=== PATIENT | male | born 1965 | race Asian ===

== ENCOUNTER 2016-06-07 09:29 | Emergency (ER) | payer BC ==
[~2016-06-07] VITALS: Ht 162.6 cm; Wt 79.5 kg
[~2016-06-07 09:29] MED LIST: ATOR40TA68 PO; METF-382 PO
[2016-06-07 09:30] VITALS: Ht 162.6 cm; Wt 79.5 kg
[2016-06-07] MEDS ORDERED: FAMOTIDINE 20 MG INJ IV STA (11:24)
[2016-06-07] MEDS ORDERED: SOD CHLORIDE 0.9% 500 ML IV STA (11:24)
[2016-06-07] MEDS ORDERED: ONDANSETRON 4 MG INJ IV STA (11:24)
[2016-06-07] MEDS ORDERED: morphine 4 MG/ML VIAL IV STA (11:24)
[2016-06-07 11:53] LABS: ADD SCAN DIFF NO
[2016-06-07 12:00] LABS: ALBUMIN 4.5 g/dl (3.3-4.9); POTASSIUM 4.2 mmol/L (3.5-5.1)
[2016-06-07 12:02] LABS: BILIRUBIN,INDIRECT 0.4 mg/dl (0-1.1); BILIRUBIN,TOTAL 0.4 mg/dl (0.2-1.3); CREATININE 0.82 mg/dl (0.61-1.24)
[2016-06-07] MEDS ORDERED: LANT3I SC (12:02)
[2016-06-07 12:03] LABS: ALBUMIN/GLOBULIN RATIO 1.45; CALCIUM 9.7 mg/dl (8.4-10.2); TOTAL PROTEIN 7.6 g/dl (6.1-8.1)
[2016-06-07 12:07] LABS: BASOPHILS % 0.6 % (0.0-2.0); EOSINOPHILS # 0.3 10^3/ul (0.0-0.5); EOSINOPHILS % 4.3 % (0.0-7.0); HEMATOCRIT 51.1 % (42.0-52.0); HEMOGLOBIN 16.7 g/dl (14.0-18.0); LYMPHOCYTES # 2.4 10^3/ul (0.8-2.9); LYMPHOCYTES % 36.3 % (15.0-51.0); MEAN CORPUSCULAR HEMOGLOBIN 27.3 pg (29.0-33.0); MEAN CORPUSCULAR HGB CONC 32.7 g/dl (32.0-37.0); MEAN CORPUSCULAR VOLUME 83.6 fl (82.0-101.0); MEAN PLATELET VOLUME 10.2 fl (7.4-10.4); MONOCYTE # 0.4 10^3/ul (0.3-0.9); MONOCYTES % 6.3 % (0.0-11.0); NEUTROPHIL # 3.4 10^3/ul (1.6-7.5); NEUTROPHILS % 52.3 % (39.0-77.0); PLATELET COUNT 218 10^3/UL (140-415); RED BLOOD COUNT 6.11 10^6/ul (4.70-6.10); RED CELL DISTRIBUTION WIDTH 13.5 % (11.5-14.5); WHITE BLOOD COUNT 6.5 10^3/ul (4.8-10.8)
[2016-06-07] MEDS ORDERED: SOD CHLORIDE 0.9% 100 ML ONE (12:46)
[2016-06-07] MEDS ORDERED: IOHEXOL 300MG/ML 150 ML BTL ONE (12:46)
--- NOTE | 2016-06-07 13:11 | RADRPT ---
PROCEDURE: CT scan of the abdomen and pelvis with and without IV contrast. CLINICAL INDICATION: Abdominal pain. TECHNIQUE: Thin section axial, coronal and sagittal images were performed through the abdomen and pelvis without contrast and then following the injection of 100 cc of Isovue 370. Low-dose protocol imaging was utilized. One or more of the following dose reduction techniques were used: - Automated exposure control. - Adjustment of the mA and/or kV according to patient size. Use of iterative reconstruction technique. Radiation Dose: CTDI: A point a and DLP: 500 COMPARISON: Chest x-ray 06/12/2014. FINDINGS: Lungs and pleural space: There is peripheral atelectasis in the bases of the lungs attributed to sup ine positioning and a less than optimal inspiration. No pulmonary infiltrate or pleural effusion is identified. Heart: Normal. No pericardial effusion is present. The liver, common bile duct and gallbladder: The liver is enlarged measuring 17.8 cm AP. The hepati c and portal veins are patent. The gallbladder and gallbladder wall are normal. There is no eviden ce of cholelithiasis. Pancreas: Normal. The extrahepatic common bile duct is normal. Gastrointestinal: Gastric wall thickening is attributed to incomplete distension. There is no evide nce of a hiatal hernia. The small bowel loops are normal. There is fecal material in the ascending and descending colon the vermiform appendix is normal. There is a tiny umbilical hernia containing only fat. There are small diverticula in the sigmoid colon but no evidence of diverticulitis. Kidneys and bladder : There are bilateral small benign renal cysts which do not require additional f ollow-up. No solid renal mass is identified. There is no evidence of hydronephrosis. The urinary b ladder is normal. No bladder wall thickening or bladder stone is present. Adrenal glands: Normal. Spleen: Normal. Lymph nodes: Normal. Reproductive system: The seminal vesicles and prostate gland are normal. Bony elements: There are degenerative osteophytes in the lower thoracic and lumbosacral spine. Ther e are degenerative changes in both hips. No acute bony fracture or bone metastasis is identified. Vasculature: Normal. IMPRESSION: 1. Multiple benign small renal cysts are identified bilaterally with no evidence of a solid mass or hydronephrosis. 2. Mild hepatomegaly with the liver measuring 17.8 cm AP. 3. Diverticulosis of the sigmoid colon. No evidence of diverticulitis. Normal vermiform appendix. 4. No acute abdominal or pelvic processes identified. 5. Spondylosis of the thoracic and lumbosacral spine. 6. Small midline umbilical hernia containing fat. RPTAT:AAJJ Physician Keyla Date Time Electronically viewed and signed by Matt Morales Physician on 06/07/2016 13:10 /
[2016-06-07] MEDS ORDERED: OMEP40CA6 PO (13:35)
--- NOTE | 2016-06-07 13:38 | ERD ---
ER Documentation Chief Complaint Date/Time DATE: 06/07/16 TIME: 13:36 Chief Complaint ap x 1 week, intermittent HPI This is a 50-year-old male complaining of left upper quadrant pain for the past week. He says when he eats food he starts having lots of belching and gas. He says that he has some mild discomfort that has been relieved with Pepcid over the past week. He says he has a history of peptic ulcer disease and this feels exactly like his prior ulcer. He has no chest pain or shortness of breath pain in the elbows jaws no back pain. No diaphoresis no exertional pain. Says it tends to get worse relatively quickly after eating. He says the last 30 minutes to an hour and will go away. He states he has 1 or 2 loose bowels as well. No vomiting no nausea. ROS All systems reviewed and are negative except as per history of present illness. Medications Home Meds Active Scripts Omeprazole* (Omeprazole*) 40 Mg Capsule.dr, 40 MG PO DAILY, #14 CAP Prov:DUY HERNANDEZ DO 06/07/16 Reported Medications Insulin Glargine* (Lantus*) 100 Unit/Ml Soln, 15 UNIT SC QHS, #1 VIAL 06/07/16 Metformin Hcl* (Metformin Hcl*) 500 Mg Tablet, 500 MG PO BID, TAB 02/17/14 Discontinued Reported Medications Atorvastatin* (Atorvastatin*) 40 Mg Tablet, 40 MG PO HS, TAB 08/14/13 Allergies Allergies: Coded Allergies: aspirin (Verified Allergy, Unknown, 08/14/13) PMhx/Soc History of Surgery: No Anesthesia Reaction: No Hx Neurological Disorder: No Hx Respiratory Disorders: No Hx Cardiac Disorders: No Hx Psychiatric Problems: No Hx Miscellaneous Medical Probl: Yes (DM) Hx Alcohol Use: No Hx Substance Use: No Hx Tobacco Use: No Smoking Status: Never smoker FmHx Family History: No coronary disease Physical Exam Vitals Vital Signs Date Time Temp Pulse Resp B/P Pulse Ox O2 Delivery O2 Flow Rate FiO2 06/07/16 09:30 98.1 80 20 137/91 99 Physical Exam Const: Well-developed, well-nourished Head: Atraumatic, normocephalic Eyes: Normal Conjunctiva, PERRLA, EOMI, normal sclera, no nystagmus ENT: Normal External Ears, Nose and Mouth, moist mucus membranes. Neck: Full range of motion. No meningismus, no lymphadenopathy. Resp: Clear to auscultation bilaterally, no wheezing, rhonchi, rales Cardio: Regular rate and rhythm, no murmurs, S1 S2 present Abd: Soft, very mild left upper quadrant and left mid abdominal tenderness non distended. Normal bowel sounds, no guarding or rebound, no pulsitile abdominal masses or bruits Skin: No petechiae or rashes, no ecchymosis , no maculopapular rash Back: No midline or flank tenderness Ext: No cyanosis, or edema, FROM x 4, normal inspection, neurovascularly intact x 4 Neur: Awake and alert, STR 5/5 x 4, sensation intact x 4, no focal findings, cerebellum intact Psych: Normal Mood and Affect Result Diagram: 06/07/16 1110 06/07/16 1110 Results 24 hrs Laboratory Tests Test 06/07/16 11:10 White Blood Count 6.510^3/ul Red Blood Count 6.1110^6/ul Hemoglobin 16.7g/dl Hematocrit 51.1% Mean Corpuscular Volume 83.6fl Mean Corpuscular Hemoglobin 27.3pg Mean Corpuscular Hemoglobin Concent 32.7g/dl Red Cell Distribution Width 13.5% Platelet Count 82860^3/UL Mean Platelet Volume 10.2fl Neutrophils % 52.3% Lymphocytes % 36.3% Monocytes % 6.3% Eosinophils % 4.3% Basophils % 0.6% Nucleated Red Blood Cells % 0.0/100WBC Neutrophils # 3.410^3/ul Lymphocytes # 2.410^3/ul Monocytes # 0.410^3/ul Eosinophils # 0.310^3/ul Basophils # 0.010^3/ul Nucleated Red Blood Cells # 0.010^3/ul Sodium Level 141mmol/L Potassium Level 4.2mmol/L Chloride Level 104mmol/L Carbon Dioxide Level 27mmol/L Anion Gap 14 Blood Urea Nitrogen 18mg/dl Creatinine 0.82mg/dl Glucose Level 140mg/dl Calcium Level 9.7mg/dl Total Bilirubin 0.4mg/dl Direct Bilirubin 0.00mg/dl Indirect Bilirubin 0.4mg/dl Aspartate Amino Transf (AST/SGOT) 29IU/L Alanine Aminotransferase (ALT/SGPT) 39IU/L Alkaline Phosphatase 109IU/L Total Protein 7.6g/dl Albumin 4.5g/dl Globulin 3.10g/dl Albumin/Globulin Ratio 1.45 Lipase 83U/L Current Medications Medications (Trade) Dose Ordered Sig/Grabiel Route PRN Reason Start Time Stop Time Status Last Admin Dose Admin Sodium Chloride (NS) 500 ml @ 500 mls/hr Q1H STAT IV 06/07/16 11:24 06/07/16 12:23 DC 06/07/16 12:13 Morphine Sulfate (morphine) 4 mg ONCE STAT IV 06/07/16 11:24 06/07/16 11:26 DC 06/07/16 12:13 Ondansetron HCl (Zofran Inj) 4 mg ONCE STAT IV 06/07/16 11:24 06/07/16 11:26 DC 06/07/16 12:13 Famotidine (Pepcid Iv) 20 mg ONCE STAT IV 06/07/16 11:24 06/07/16 11:26 DC 06/07/16 12:13 IV Flush 10 ml 10 ml STK-MED ONCE .ROUTE 06/07/16 12:46 06/07/16 12:47 DC 06/07/16 13:01 Sodium Chloride (NS) 100 ml @ ud STK-MED ONCE .ROUTE 06/07/16 12:46 06/07/16 12:47 DC 06/07/16 13:01 Iohexol (Omnipaque 300mg/ ml) 150 ml STK-MED ONCE .ROUTE 06/07/16 12:46 06/07/16 12:47 DC 06/07/16 13:01 Procedures/MDM PROCEDURE: CT scan of the abdomen and pelvis with and without IV contrast. CLINICAL INDICATION: Abdominal pain. TECHNIQUE: Thin section axial, coronal and sagittal images were performed through the abdomen and pelvis without contrast and then following the injection of 100 cc of Isovue 370. Low-dose protocol imaging was utilized. One or more of the following dose reduction techniques were used: - Automated exposure control. - Adjustment of the mA and/or kV according to patient size. Use of iterative reconstruction technique. Radiation Dose: CTDI: A point a and DLP: 500 COMPARISON: Chest x-ray 06/12/2014. FINDINGS: Lungs and pleural space: There is peripheral atelectasis in the bases of the lungs attributed to supine positioning and a less than optimal inspiration. No pulmonary infiltrate or pleural effusion is identified. Heart: Normal. No pericardial effusion is present. The liver, common bile duct and gallbladder: The liver is enlarged measuring 17.8 cm AP. The hepatic and portal veins are patent. The gallbladder and gallbladder wall are normal. There is no evidence of cholelithiasis. Pancreas: Normal. The extrahepatic common bile duct is normal. Gastrointestinal: Gastric wall thickening is attributed to incomplete distension. There is no evidence of a hiatal hernia. The small bowel loops are normal. There is fecal material in the ascending and descending colon the vermiform appendix is normal. There is a tiny umbilical hernia containing only fat. There are small diverticula in the sigmoid colon but no evidence of diverticulitis. Kidneys and bladder : There are bilateral small benign renal cysts which do not require additional follow-up. No solid renal mass is identified. There is no evidence of hydronephrosis. The urinary bladder is normal. No bladder wall thickening or bladder stone is present. Adrenal glands: Normal. Spleen: Normal. Lymph nodes: Normal. Reproductive system: The seminal vesicles and prostate gland are normal. Bony elements: There are degenerative osteophytes in the lower thoracic and lumbosacral spine. There are degenerative changes in both hips. No acute bony fracture or bone metastasis is identified. Vasculature: Normal. IMPRESSION: 1. Multiple benign small renal cysts are identified bilaterally with no evidence of a solid mass or hydronephrosis. 2. Mild hepatomegaly with the liver measuring 17.8 cm AP. 3. Diverticulosis of the sigmoid colon. No evidence of diverticulitis. Normal vermiform appendix. 4. No acute abdominal or pelvic processes identified. 5. Spondylosis of the thoracic and lumbosacral spine. 6. Small midline umbilical hernia containing fat. RPTAT:AAJJ Physician Keyla Date Time Electronically viewed and signed by Physician Keyla on 06/07/2016 13:10 LISSA/ CC: LEKKOS,APOSTOLOS A. DO Blood work is unremarkable. The patient has no signs of diverticulitis obstruction. The patient's symptoms are consistent with his prior peptic ulcer disease I feel this is what he has going on now. Lab work is unremarkable. We will discharge home on omeprazole and lectured him on proper diet Departure Diagnosis: Primary Impression: Dyspepsia Condition: Stable Patient Instructions: Gastritis Vs. Ulcer DUY HERNANDEZ DO Jun 07, 2016 13:38
[2016-06-07 13:43] VITALS: BP 129/65; PULSE 54; RESP 18; TEMP 98.5
== END 2016-06-07 13:44 | disposition home or self-care (01) ==
LOC: E/R 09:29
DX: R10.13 Epigastric pain (principal); E11.9 Type 2 diabetes mellitus without complications; Z79.4 Long term (current) use of insulin; Z79.84 Long term (current) use of oral hypoglycemic drugs
CPT/HCPCS: 36415; 74177; 80053; 83690; 85025; 96374; 96375; 99285; J2270; J2405; J7040; Q9967; Z7610